=== PATIENT | female | born 1965 | race Caucasian/White ===

== ENCOUNTER → 2020-07-26 | Outpatient (CLI) | payer OTHER | END | disposition home or self-care (01) | LOC: LAB 09:38 | PROVIDERS: ATTEND Preventive Medicine Preventive Medicine/Occupational Environmental Medicine | DX: Z02.1 Encounter for pre-employment examination (principal) | CPT/HCPCS: 36415; 86706; 86735; 86762; 86765; 86787 ==

== ENCOUNTER 2021-02-03 06:27 | Emergency (ER) | payer BC, OTHER ==
[~2021-02-03] VITALS: Ht 162.6 cm; Wt 65.8 kg
[2021-02-03] MEDS ORDERED: cefTRIAXone 1GM/50ML D5W 50 ML IV ONE (07:45)
[2021-02-03] MEDS ORDERED: SODIUM CHLORIDE 0.9% 1,000 ML IV ONE ×2 (07:45)
[2021-02-03] MEDS ORDERED: ONDANSETRON HCL 4 MG/2 ML VIAL IV ONE (07:45)
[2021-02-03] MEDS ORDERED: MORPHINE SULFATE 4 MG/ML SYR/VIAL IV ONE (07:45)
[2021-02-03 07:54] LABS: Basophils # (auto) 0 10 ^3/uL (0-0.2); Basophils % (auto) 0.5 % (0.0-2.0); Eosinophils # (auto) 0.2 10 ^3/uL (0-0.8); Eosinophils % (auto) 2.4 % (0.0-7.0); Hematocrit 34.4 % (36.0-46.0); Hemoglobin 11.6 g/dL (12.2-16.2); Lymphocytes # (auto) 1.3 10 ^3/uL (0.4-5.4); Lymphocytes % (auto) 18.2 % (10.0-50.0); Mean Corpuscular Hemoglobin 32.1 pg (28.0-32.0); Mean Corpuscular Hgb Conc. 33.6 g/dL (32.0-36.0); Mean Corpuscular Volume 95.4 fL (80.0-100.0); Monocytes # (auto) 0.5 10 ^3/uL (0-1.3); Monocytes % (auto) 7.7 % (0.0-12.0); Neutrophils # (auto) 5.1 10 ^3/uL (1.6-8.6); Neutrophils % (auto) 71.2 % (37.0-80.0); Platelet Count (auto) 282 10^3/uL (140-450); White Blood Cell 7.1 10^3/uL (4.4-10.8)
[2021-02-03 08:23] LABS: Calcium 8.8 mg/dL (8.5-10.1); Potassium 3.6 mmol/L (3.5-5.1)
[2021-02-03 08:26] LABS: BUN/Creatinine Ratio 16.4; Bilirubin, Total 1.2 mg/dL (0.2-1.0); Total Protein 6.6 g/dL (6.4-8.2)
[2021-02-03 11:06] LABS: Urine Bacteria NONE SEEN /hpf (None Seen); Urine Blood Negative /uL (Negative); Urine Specific Gravity 1.009 (1.001-1.035); Urine WBC 1 /hpf (0 - 5)
[2021-02-03 11:49] VITALS: BP 95/58
== END 2021-02-03 12:33 | disposition home or self-care (01) ==
LOC: ER 06:27 → EEVIPCON 06:27 → ER 12:33
DX: R10.30 Lower abdominal pain, unspecified (principal)
CPT/HCPCS: 36415; 74176; 80053; 81001; 83605; 83690; 85025; 87040; 96365; 96375; 99285; J0696; J2270; J2405

== ENCOUNTER → 2022-01-23 | Outpatient (CLI) | payer BC ==
[2022-01-23 11:44] LABS: Urine Bacteria FEW /hpf (None Seen); Urine Blood TRACE /uL (Negative); Urine Specific Gravity 1.002 (1.001-1.035); Urine WBC 1 /hpf (0 - 5)
== END | disposition home or self-care (01) ==
LOC: LAB 10:59
PROVIDERS: ATTEND Internal Medicine
DX: N39.0 Urinary tract infection, site not specified (principal)
CPT/HCPCS: 81001

== ENCOUNTER → 2022-01-27 | Outpatient (CLI) | payer BC | END | disposition home or self-care (01) | LOC: XYW 10:51 | PROVIDERS: ATTEND Internal Medicine | DX: I07.1 Rheumatic tricuspid insufficiency (principal); I10 Essential (primary) hypertension | CPT/HCPCS: 93306 ==

== ENCOUNTER 2022-02-11 12:57 | Inpatient (IN) | payer BC ==
[~2022-02-11] VITALS: Ht 162.6 cm; Wt 77.9 kg
[2022-02-11 13:21] LABS: Basophils # (auto) 0.1 10 ^3/uL (0-0.2); Basophils % (auto) 1.2 % (0.0-2.0); Eosinophils # (auto) 0.1 10 ^3/uL (0-0.8); Hematocrit 43.6 % (36.0-46.0); Hemoglobin 14.9 g/dL (12.2-16.2); Lymphocytes # (auto) 2.1 10 ^3/uL (0.4-5.4); Lymphocytes % (auto) 35.5 % (10.0-50.0); Mean Corpuscular Hemoglobin 31.5 pg (28.0-32.0); Mean Corpuscular Hgb Conc. 34.2 g/dL (32.0-36.0); Mean Corpuscular Volume 92.3 fL (80.0-100.0); Monocytes # (auto) 0.5 10 ^3/uL (0-1.3); Monocytes % (auto) 8.4 % (0.0-12.0); Neutrophils # (auto) 3.1 10 ^3/uL (1.6-8.6); Neutrophils % (auto) 52.9 % (37.0-80.0); Nucleated Red Blood Cells % 0.1 %; Red Blood Cells 4.73 10^6/uL (4.0-5.20); Red Cell Distribution Width 13.3 % (11.8-14.3); White Blood Cell 5.9 10^3/uL (4.4-10.8)
[2022-02-11 13:54] LABS: Albumin 3.6 g/dL (3.4-5.0); BUN/Creatinine Ratio 12.5; Calcium 8.8 mg/dL (8.5-10.1); Potassium 4.1 mmol/L (3.5-5.1)
[2022-02-11 13:56] LABS: Bilirubin, Total 0.8 mg/dL (0.2-1.0); Total Protein 7.4 g/dL (6.4-8.2)
[2022-02-11 15:01] LABS: Magnesium 2.2 mg/dL (1.6-2.6)
[2022-02-11] MEDS ORDERED: IOHEXOL 350 MG/ML 100ML IJ ONE (15:08)
[2022-02-11 15:10] LABS: INR 0.99 (0.9-1.15); Partial Thromboplastin Time 25.6 sec (23.6-33.0)
[2022-02-11 16:26] LABS: Urine Bacteria FEW /hpf (None Seen); Urine Blood Negative /uL (Negative); Urine Mucus FEW (None Seen); Urine WBC 1 /hpf (0 - 5)
[2022-02-11 16:58] LABS: Urine Specific Gravity > 1.055 (1.001-1.035)
[2022-02-12] MEDS ORDERED: DOCUSATE SOD 100 MG CAP PO PRN
[2022-02-12] MEDS ORDERED: ACETAMINOPHEN 325 MG TAB PO PRN
[2022-02-12] MEDS ORDERED: MORPHINE SULFATE INJECTION 2 MG/ML SYRG IV PRN
[2022-02-12] MEDS ORDERED: NITROGLYCERIN 0.4 MG SL TAB SL PRN
[2022-02-12 01:12] VITALS: BP 117/67
[2022-02-12] MEDS: MORPHINE SULFATE INJECTION 2 MG/ML SYRG IV PRN ×3 (03:58→18:55)
[2022-02-12 05:00] VITALS: BP 100/49
[2022-02-12 05:37] LABS: Basophils # (auto) 0.1 10 ^3/uL (0-0.2); Basophils % (auto) 1.3 % (0.0-2.0); Eosinophils # (auto) 0.2 10 ^3/uL (0-0.8); Eosinophils % (auto) 2.7 % (0.0-7.0); Hematocrit 41.2 % (36.0-46.0); Hemoglobin 14.3 g/dL (12.2-16.2); Lymphocytes # (auto) 2.2 10 ^3/uL (0.4-5.4); Lymphocytes % (auto) 36.6 % (10.0-50.0); Mean Corpuscular Hemoglobin 31.9 pg (28.0-32.0); Mean Corpuscular Hgb Conc. 34.7 g/dL (32.0-36.0); Mean Corpuscular Volume 91.7 fL (80.0-100.0); Monocytes # (auto) 0.6 10 ^3/uL (0-1.3); Monocytes % (auto) 9.6 % (0.0-12.0); Neutrophils % (auto) 49.8 % (37.0-80.0); Nucleated Red Blood Cells % 0.1 %; Red Cell Distribution Width 13.7 % (11.8-14.3)
[2022-02-12 05:55] LABS: Potassium 3.9 mmol/L (3.5-5.1)
[2022-02-12] MEDS: SODIUM CHLOR 0.9% PF (SALINE LOCK) 10ML VIAL/SYR IV SCH ×3 (06:00→22:31)
[2022-02-12 06:01] LABS: Albumin 3.5 g/dL (3.4-5.0); BUN/Creatinine Ratio 12.8; Calcium 9.1 mg/dL (8.5-10.1)
[2022-02-12 06:04] LABS: Bilirubin, Total 0.8 mg/dL (0.2-1.0)
[2022-02-12 09:00] VITALS: BP 99/50
[2022-02-12] MEDS: FAMOTIDINE (10MG/ML) 2ML VL IV SCH ×2 (09:09→22:23)
[2022-02-12 13:00] VITALS: BP 103/56
[2022-02-12] MEDS ORDERED: ceFAZolin 1GM/50ML 50 ML IV ONE (16:41)
[2022-02-12] MEDS ORDERED: ROCURONIUM 10MG/ML 10ML VIAL IV ONE (16:47)
[2022-02-12] MEDS ORDERED: SUCCINYLCHOLINE CHLORIDE 20 MG/ML 10ML VIAL IV ONE (16:47)
[2022-02-12] MEDS ORDERED: METOCLOPRAMIDE HCL 5MG/ml INJ 2ml VIAL ONE (16:52)
[2022-02-12] MEDS ORDERED: NEOSTIGMINE 1 MG/ML INJ (10mg/10ML VIAL) ONE (16:52)
[2022-02-12] MEDS ORDERED: ONDANSETRON HCL 4 MG/2 ML VIAL ONE (16:52)
[2022-02-12] MEDS ORDERED: GLYCOPYRROLATE 0.2 MG/ML 1ML VIAL ONE (16:52)
[2022-02-12] MEDS ORDERED: SODIUM CHLORIDE LOCK 10 ML ONE (16:52)
[2022-02-12] MEDS ORDERED: MIDAZOLAM HCL 2MG/2ML 2ml VIAL (1mg/ml) ONE (16:52)
[2022-02-12] MEDS ORDERED: MEPERIDINE HCL (25 MG/ML) 1ML VIAL ONE (16:52)
[2022-02-12] MEDS ORDERED: PROPOFOL 10 MG/ML 20 ML IV ONE (16:52)
[2022-02-12] MEDS ORDERED: DexAMETHasone SOD PHOS 10MG/1ML VIAL INJ ONE (16:52)
[2022-02-12] MEDS ORDERED: fentaNYL CITRATE 100 MCG/2 ML VL ONE (16:52)
[2022-02-12] MEDS: BUPIVACAINE 0.25% INJ 50ML VIAL ONE ×2 (16:53→17:55)
[2022-02-12] MEDS ORDERED: DOXAPRAM HCL 20 MG/ML 20ML VIAL INJ IV ONE (16:57)
[2022-02-12 17:08] VITALS: BP 127/66
[2022-02-12] MEDS ORDERED: SUGAMMADEX 200mg/2ml Vial (100MG/ML) IV ONE (17:47)
[2022-02-12] MEDS ORDERED: MORPHINE SULFATE 4 MG/ML SYR/VIAL IV PRN (18:15)
[2022-02-12] MEDS ORDERED: ONDANSETRON HCL 4 MG/2 ML VIAL IV PRN ×2 (18:15)
[2022-02-12] MEDS ORDERED: KETOROLAC TROMETH 30 MG/ML 1ML VIAL IV ONE (18:15)
[2022-02-12] MEDS ORDERED: HYDROmorphone HCL 2 MG/ML VL/or syr IV PRN (18:15)
[2022-02-12 22:00] VITALS: BP 95/51
[2022-02-12] MEDS: HYDROcodone-ACET 5/325MG TAB PO PRN (22:23)
[2022-02-13] MEDS: MORPHINE SULFATE INJECTION 2 MG/ML SYRG IV PRN ×2 (03:40→12:22)
[2022-02-13 04:45] VITALS: BP 100/65
[2022-02-13] MEDS: SODIUM CHLOR 0.9% PF (SALINE LOCK) 10ML VIAL/SYR IV SCH ×2 (05:31→15:53)
[2022-02-13 09:00] VITALS: BP 121/75
[2022-02-13] MEDS: FAMOTIDINE (10MG/ML) 2ML VL IV SCH (10:41)
[2022-02-13 13:00] VITALS: BP 116/57
[2022-02-13] MEDS: HYDROcodone-ACET 5/325MG TAB PO PRN (13:35)
[2022-02-13 13:58] LABS: Basophils # (auto) 0 10 ^3/uL (0-0.2); Basophils % (auto) 0.3 % (0.0-2.0); Eosinophils # (auto) 0 10 ^3/uL (0-0.8); Hematocrit 43.2 % (36.0-46.0); Hemoglobin 14.6 g/dL (12.2-16.2); Lymphocytes # (auto) 1.3 10 ^3/uL (0.4-5.4); Mean Corpuscular Hemoglobin 31.2 pg (28.0-32.0); Mean Corpuscular Hgb Conc. 33.8 g/dL (32.0-36.0); Mean Corpuscular Volume 92.1 fL (80.0-100.0); Monocytes # (auto) 0.9 10 ^3/uL (0-1.3); Monocytes % (auto) 7.3 % (0.0-12.0); Neutrophils # (auto) 10.5 10 ^3/uL (1.6-8.6); Neutrophils % (auto) 82.4 % (37.0-80.0); Red Blood Cells 4.69 10^6/uL (4.0-5.20); Red Cell Distribution Width 13.5 % (11.8-14.3); White Blood Cell 12.7 10^3/uL (4.4-10.8)
[2022-02-13 14:14] LABS: Albumin 3.5 g/dL (3.4-5.0); BUN/Creatinine Ratio 9.3; Calcium 9.3 mg/dL (8.5-10.1); Potassium 4.5 mmol/L (3.5-5.1)
[2022-02-13 14:17] LABS: Bilirubin, Total 0.8 mg/dL (0.2-1.0); Total Protein 7.6 g/dL (6.4-8.2)
[2022-02-13] MEDS ORDERED: PANT40TA2 PO (15:06)
[2022-02-13] MEDS ORDERED: ONDA-144 PO (15:06)
[2022-02-13 16:46] VITALS: BP 116/57
== END 2022-02-13 17:00 | disposition home or self-care (01) | DRG 418 ==
LOC: ER 12:57 → OVERFLOW 23:51 → CENTRAL 02-12 00:45
PROVIDERS: ADMIT Nurse Practitioner Family; ATTEND Internal Medicine
PROC: 0FT44ZZ Resection of Gallbladder, Percutaneous Endoscopic Approach (ICD-10-PCS; principal; 2022-02-12 16:55)
DX: K80.62 Calculus of gallbladder and bile duct with acute cholecystitis without obstruction (principal); J98.11 Atelectasis; Z20.822 Contact with and (suspected) exposure to COVID-19; Z90.710 Acquired absence of both cervix and uterus; Z98.82 Breast implant status
CPT/HCPCS: 36415; 71260; 74177; 76705; 80053; 81001; 83690; 83735; 84443; 85025; 85610; 85730; 93005; 96374; 96375; G0378; J0330; J0690; J1100; J2250; J2405; J2704; J3490

== ENCOUNTER → 2022-03-03 | Outpatient (CLI) | payer BC ==
[~2022-03-03] MED LIST: ONDA-144 PO; PANT40TA2 PO
[2022-03-03 09:38] LABS: Urine Bacteria MOD /hpf (None Seen); Urine Blood 1+ /uL (Negative); Urine Mucus FEW (None Seen); Urine Specific Gravity 1.025 (1.001-1.035); Urine WBC 2 /hpf (0 - 5)
[2022-03-03 09:47] LABS: Basophils # (auto) 0 10 ^3/uL (0-0.2); Basophils % (auto) 0.7 % (0.0-2.0); Eosinophils # (auto) 0.2 10 ^3/uL (0-0.8); Eosinophils % (auto) 3.1 % (0.0-7.0); Hematocrit 43.1 % (36.0-46.0); Hemoglobin 14.5 g/dL (12.2-16.2); Lymphocytes # (auto) 1.3 10 ^3/uL (0.4-5.4); Lymphocytes % (auto) 24.3 % (10.0-50.0); Mean Corpuscular Hemoglobin 31.3 pg (28.0-32.0); Mean Corpuscular Hgb Conc. 33.7 g/dL (32.0-36.0); Mean Corpuscular Volume 92.8 fL (80.0-100.0); Monocytes # (auto) 0.6 10 ^3/uL (0-1.3); Monocytes % (auto) 11.6 % (0.0-12.0); Neutrophils # (auto) 3.2 10 ^3/uL (1.6-8.6); Neutrophils % (auto) 60.3 % (37.0-80.0); Red Blood Cells 4.64 10^6/uL (4.0-5.20); Red Cell Distribution Width 13.3 % (11.8-14.3); White Blood Cell 5.4 10^3/uL (4.4-10.8)
[2022-03-03 10:36] LABS: Albumin 3.5 g/dL (3.4-5.0); Bilirubin, Direct 0.2 mg/dL (0-0.2); Bilirubin, Total 0.9 mg/dL (0.2-1.0); Total Protein 7.2 g/dL (6.4-8.2)
== END | disposition home or self-care (01) ==
LOC: LAB 09:17
PROVIDERS: ATTEND Internal Medicine
DX: R31.29 Other microscopic hematuria (principal); R10.13 Epigastric pain
CPT/HCPCS: 36415; 80076; 81001; 85025

== ENCOUNTER → 2022-04-16 | Outpatient (CLI) | payer BC | END | disposition home or self-care (01) | LOC: LAB 09:59 | PROVIDERS: ATTEND Internal Medicine | DX: K57.90 Diverticulosis of intestine, part unspecified, without perforation or abscess without bleeding (principal); D72.829 Elevated white blood cell count, unspecified | CPT/HCPCS: 36415; 85652; 86256 ==

== ENCOUNTER → 2022-05-21 | Outpatient (CLI) | payer MEDICAID ==
[2022-05-21 15:04] LABS: Urine Bacteria FEW /hpf (None Seen); Urine Blood 1+ /uL (Negative); Urine Mucus FEW (None Seen); Urine Specific Gravity 1.029 (1.001-1.035); Urine WBC 13 /hpf (0 - 5)
== END | disposition home or self-care (01) ==
LOC: LAB 14:30
PROVIDERS: ATTEND Urology
DX: N39.0 Urinary tract infection, site not specified (principal)
CPT/HCPCS: 81001; 87086

== ENCOUNTER → 2023-01-15 | Outpatient (CLI) | payer MEDICAID ==
[~2023-01-15] MED LIST changes: +DICL1GEL50 TOP; +IBUP800T27 PO
[2023-01-15 13:00] LABS: Urine Bacteria FEW /hpf (None Seen); Urine Blood 1+ /uL (Negative); Urine Specific Gravity 1.021 (1.001-1.035); Urine WBC 2 /hpf (0 - 5)
== END | disposition home or self-care (01) ==
LOC: LAB 11:44
PROVIDERS: ATTEND Internal Medicine
DX: R10.2 Pelvic and perineal pain (principal)
CPT/HCPCS: 81001; 87086

== ENCOUNTER → 2023-02-19 | Outpatient (CLI) | payer MEDICAID | END | disposition home or self-care (01) | LOC: LAB 06:41 | PROVIDERS: ATTEND Internal Medicine | DX: N39.0 Urinary tract infection, site not specified (principal) | CPT/HCPCS: 87086 ==

== ENCOUNTER → 2023-02-26 | Outpatient (CLI) | payer MEDICAID ==
[2023-02-26 06:55] LABS: Urine WBC None Seen /hpf (0 - 5)
[2023-02-26 08:42] LABS: Urine Bacteria NONE SEEN /hpf (None Seen); Urine Blood Negative /uL (Negative); Urine Budding Yeast MANY /hpf (None Seen)
== END | disposition home or self-care (01) ==
LOC: LAB 06:52
PROVIDERS: ATTEND Urology
DX: N39.0 Urinary tract infection, site not specified (principal)
CPT/HCPCS: 81001; 87086

== ENCOUNTER 2023-03-14 10:05 | Emergency (ER) | payer MEDICAID ==
[~2023-03-14] VITALS: Ht 162.6 cm; Wt 68.0 kg
[~2023-03-14 10:05] MED LIST changes: -DICL1GEL50 TOP; +DICL1GEL73 TOP; +IBUP-1456 PO; -IBUP800T27 PO
[2023-03-14 10:30] LABS: Basophils # (auto) 0 10 ^3/uL (0-0.2); Basophils % (auto) 0.9 % (0.0-2.0); Eosinophils # (auto) 0.1 10 ^3/uL (0-0.8); Eosinophils % (auto) 1.5 % (0.0-7.0); Hematocrit 42.5 % (36.0-46.0); Hemoglobin 14.8 g/dL (12.2-16.2); Lymphocytes # (auto) 1.7 10 ^3/uL (0.4-5.4); Lymphocytes % (auto) 33.5 % (10.0-50.0); Mean Corpuscular Hemoglobin 32.6 pg (28.0-32.0); Mean Corpuscular Hgb Conc. 34.9 g/dL (32.0-36.0); Mean Corpuscular Volume 93.5 fL (80.0-100.0); Monocytes # (auto) 0.4 10 ^3/uL (0-1.3); Monocytes % (auto) 8.4 % (0.0-12.0); Neutrophils # (auto) 2.9 10 ^3/uL (1.6-8.6); Neutrophils % (auto) 55.7 % (37.0-80.0); Nucleated Red Blood Cells % 0.1 %; Red Blood Cells 4.54 10^6/uL (4.0-5.20); Red Cell Distribution Width 13.2 % (11.8-14.3); White Blood Cell 5.2 10^3/uL (4.4-10.8)
[2023-03-14 10:35] VITALS: BP 104/57
[2023-03-14 10:49] LABS: Albumin 3.6 g/dL (3.4-5.0); Calcium 8.7 mg/dL (8.5-10.1); Potassium 3.6 mmol/L (3.5-5.1)
[2023-03-14 10:53] LABS: BUN/Creatinine Ratio 12.2 (10.0-20.0); Total Protein 6.7 g/dL (6.4-8.2)
[2023-03-14 12:25] LABS: Urine Bacteria MOD /hpf (None Seen); Urine Blood 1+ /uL (Negative); Urine Mucus MANY (None Seen); Urine Specific Gravity 1.028 (1.001-1.035); Urine WBC 102 /hpf (0 - 5)
[2023-03-14] MEDS ORDERED: IBUP1TAB5 PO (12:41)
[2023-03-14] MEDS ORDERED: CEPH500T PO (12:41)
[2023-03-14] MEDS ORDERED: cefTRIAXone SOD 1,000 MG VL IM ONE (12:45)
[2023-03-14] MEDS ORDERED: KETOROLAC TROMETH 30 MG/ML 1ML VIAL IM ONE (12:45)
== END 2023-03-14 12:50 | disposition home or self-care (01) ==
LOC: ER 10:05
DX: N12 Tubulo-interstitial nephritis, not specified as acute or chronic (principal); Z90.49 Acquired absence of other specified parts of digestive tract; Z88.6 Allergy status to analgesic agent; Z88.8 Allergy status to other drugs, medicaments and biological substances
CPT/HCPCS: 36415; 74176; 76705; 80053; 81001; 83690; 84484; 85025; 87086; 93005; 96372; 99285; J0696; J1885

== ENCOUNTER 2023-12-14 09:38 | Emergency (ER) | payer MEDICAID ==
[~2023-12-14] VITALS: Ht 162.6 cm; Wt 76.4 kg
[~2023-12-14 09:38] MED LIST changes: +CEPH500T PO; +IBUP1TAB5 PO
[2023-12-14 09:53] VITALS: BP 113/63; PULSE 89; RESP 18; TEMP 98; O2SAT 98
[2023-12-14] MEDS: KETOROLAC TROMETH 60MG/2ML VIAL IM ONE (10:06)
[2023-12-14] MEDS: LIDOCAINE 5% TOPICAL PATCH TOP ONE (10:16)
== END 2023-12-14 10:08 | disposition home or self-care (01) ==
LOC: ER 09:38 → EEVIPCON 09:38 → ER 10:08
DX: M54.2 Cervicalgia (principal); Z90.49 Acquired absence of other specified parts of digestive tract
CPT/HCPCS: 96372; 99283; J1885

== ENCOUNTER → 2024-02-21 | Outpatient (CLI) | payer MEDICAID ==
[~2024-02-21] MED LIST changes: -CEPH500T PO; -DICL1GEL73 TOP; -IBUP1TAB5 PO; +LIDO5PAD12 EX; -PANT40TA2 PO; +TRAM50TA2 PO
[2024-02-21 10:19] LABS: Anion Gap 6 (5-15); Carbon Dioxide 27 mmol/L (20-30); Chloride 109 mmol/L (98-107); Potassium 3.8 mmol/L (3.5-5.1); Sodium 142 mmol/L (136-145)
[2024-02-21 10:20] LABS: Calcium 9.9 mg/dL (8.5-10.1)
[2024-02-21 10:25] LABS: BUN/Creatinine Ratio 9.2 (10.0-20.0); Blood Urea Nitrogen 7 mg/dL (9-23); Glucose 94 mg/dL (74-106)
== END | disposition home or self-care (01) ==
LOC: LAB 09:39
PROVIDERS: ATTEND Internal Medicine
DX: E87.6 Hypokalemia (principal)
CPT/HCPCS: 36415; 80048

== ENCOUNTER → 2024-05-09 | Outpatient (CLI) | payer MEDICAID | END | disposition home or self-care (01) | LOC: LAB 13:28 | PROVIDERS: ATTEND Internal Medicine | DX: R07.89 Other chest pain (principal); E78.5 Hyperlipidemia, unspecified | CPT/HCPCS: 82306; 82607 ==

== ENCOUNTER → 2025-02-13 | Outpatient (CLI) | payer MEDICAID ==
[~2025-02-13] MED LIST changes: +AMOX875T3 PO
[2025-02-13 07:42] LABS: Alanine Aminotransferase 27 U/L (7-40); Albumin 3.8 g/dL (3.2-4.8); Alkaline Phosphatase 77 U/L (46-116); Anion Gap 9 (5-15); Aspartate Aminotransferase 21 U/L (13-40); BUN/Creatinine Ratio 18.3 (10.0-20.0); Blood Urea Nitrogen 15 mg/dL (9-23); Calcium 9.5 mg/dL (8.7-10.4); Carbon Dioxide 24 mmol/L (20-31); Cholesterol 171 mg/dL (< 200); Glucose 94 mg/dL (74-106); HDL Cholesterol 43 mg/dL (40-59); Potassium 3.7 mmol/L (3.5-5.1); Sodium 144 mmol/L (136-145); Total Protein 5.8 g/dL (5.7-8.2); Triglycerides 121 mg/dL (< 150)
[2025-02-13 07:43] LABS: Bilirubin, Total 0.7 mg/dL (0.2-1.0)
[2025-02-13 07:44] LABS: Chloride 111 mmol/L (98-107); LDL Cholesterol 108 mg/dL (< 100)
== END | disposition home or self-care (01) ==
LOC: LAB 06:30
PROVIDERS: ATTEND Internal Medicine
DX: E87.6 Hypokalemia (principal); E55.9 Vitamin D deficiency, unspecified
CPT/HCPCS: 36415; 80053; 80061; 82306

== ENCOUNTER 2025-03-06 10:18 | Outpatient (CLI) | payer MEDICAID ==
[2025-03-06 10:38] LABS: Basophils # (auto) 0.1 10 ^3/uL (0-0.2); Basophils % (auto) 1.1 % (0.0-2.0); Eosinophils # (auto) 0.1 10 ^3/uL (0-0.8); Eosinophils % (auto) 2.1 % (0.0-7.0); Hematocrit 39.8 % (36.0-46.0); Hemoglobin 13.4 g/dL (12.2-16.2); Lymphocytes # (auto) 1.9 10 ^3/uL (0.4-5.4); Lymphocytes % (auto) 33.4 % (10.0-50.0); Mean Corpuscular Hemoglobin 29.5 pg (28.0-32.0); Mean Corpuscular Hgb Conc. 33.8 g/dL (32.0-36.0); Mean Corpuscular Volume 87.3 fL (80.0-100.0); Monocytes # (auto) 0.6 10 ^3/uL (0-1.3); Monocytes % (auto) 10.3 % (0.0-12.0); Neutrophils % (auto) 53.1 % (37.0-80.0); Platelet Count (auto) 241 10^3/uL (140-450); Red Blood Cells 4.55 10^6/uL (4.0-5.20); Red Cell Distribution Width 15.4 % (11.8-14.3); White Blood Cell 5.6 10^3/uL (4.4-10.8)
[2025-03-06 11:23] LABS: Alanine Aminotransferase 27 U/L (7-40); Albumin 4.2 g/dL (3.2-4.8); Alkaline Phosphatase 94 U/L (46-116); Anion Gap 7 (5-15); Aspartate Aminotransferase 25 U/L (13-40); BUN/Creatinine Ratio 14.7 (10.0-20.0); Blood Urea Nitrogen 11 mg/dL (9-23); Carbon Dioxide 25 mmol/L (20-31); Cholesterol 189 mg/dL (< 200); Glucose 86 mg/dL (74-106); HDL Cholesterol 41 mg/dL (40-59); Potassium 3.8 mmol/L (3.5-5.1); Sodium 143 mmol/L (136-145); Total Protein 6.4 g/dL (5.7-8.2)
[2025-03-06 11:24] LABS: Bilirubin, Total 0.7 mg/dL (0.2-1.0)
[2025-03-06 11:34] LABS: Chloride 111 mmol/L (98-107); LDL Cholesterol 121 mg/dL (< 100); Triglycerides 209 mg/dL (< 150)
== END 2025-03-06 17:00 | disposition home or self-care (01) ==
LOC: LAB 10:18
PROVIDERS: ATTEND Internal Medicine
DX: E78.5 Hyperlipidemia, unspecified (principal); R06.02 Shortness of breath; R07.89 Other chest pain
CPT/HCPCS: 36415; 80053; 80061; 83695; 84439; 84443; 85025

== ENCOUNTER 2025-03-20 10:10 | Outpatient (CLI) | payer MEDICAID ==
[~2025-03-20] VITALS: Ht 162.6 cm; Wt 74.8 kg
[2025-03-20] MEDS: REGADENOSON 0.4 MG/5 ML SYRG IV ONE ×2 (12:06→12:35)
== END 2025-03-20 17:00 | disposition home or self-care (01) ==
LOC: XYW 10:10
PROVIDERS: ATTEND Internal Medicine
DX: Z01.810 Encounter for preprocedural cardiovascular examination (principal); R07.9 Chest pain, unspecified; R06.02 Shortness of breath; E66.811 Obesity, class 1; E78.3 Hyperchylomicronemia
CPT/HCPCS: 93017; J2785

== ENCOUNTER 2025-04-18 11:18 | Day surgery (SDC) | payer MEDICAID ==
[2025-04-13 11:46] LABS: Hematocrit 40.4 % (36.0-46.0); Hemoglobin 13.6 g/dL (12.2-16.2); Mean Corpuscular Hemoglobin 29.8 pg (28.0-32.0); Mean Corpuscular Volume 88.7 fL (80.0-100.0); Nucleated Red Blood Cells % 0.1 %
[2025-04-13 11:57] LABS: INR 0.94 (0.9-1.15); Partial Thromboplastin Time 22.7 SEC (24.5-34.5); Prothrombin Time 10.0 sec (9.3-11.8)
[2025-04-13 12:12] LABS: Alanine Aminotransferase 26 U/L (7-40); Albumin 3.8 g/dL (3.2-4.8); Alkaline Phosphatase 82 U/L (46-116); Anion Gap 9 (5-15); BUN/Creatinine Ratio 14.8 (10.0-20.0); Blood Urea Nitrogen 12 mg/dL (9-23); Calcium 9.7 mg/dL (8.7-10.4); Carbon Dioxide 26 mmol/L (20-31); Chloride 111 mmol/L (98-107); Glucose 130 mg/dL (74-106); Potassium 3.5 mmol/L (3.5-5.1); Sodium 146 mmol/L (136-145); Total Protein 5.7 g/dL (5.7-8.2)
[2025-04-13 12:13] LABS: Bilirubin, Total 0.7 mg/dL (0.2-1.0)
[~2025-04-18] VITALS: Ht 157.5 cm; Wt 80.3 kg
[~2025-04-18 11:18] MED LIST changes: +ALPR0.254 PO; -AMOX875T3 PO; +ERGO1CAP23 PO; +ESCI10TA PO; +ESTR1TAB6 PO; -LIDO5PAD12 EX; -ONDA-144 PO
[2025-04-18] MEDS ORDERED: IODIXANOL 320MG/ML 100ML BTL IV ONE (12:14)
[2025-04-18] MEDS ORDERED: VERAPAMIL 2.5MG/ML INJ 2ML VIAL IV ONE (12:31)
[2025-04-18] MEDS ORDERED: HEPARIN SODIUM (PORCINE) 5000 UNITS/ML 1ML VIAL ONE (12:31)
[2025-04-18] MEDS ORDERED: MIDAZOLAM HCL 2MG/2ML 2ml VIAL (1mg/ml) ONE (12:32)
[2025-04-18] MEDS ORDERED: LIDOCAINE 2%HCL (LOCAL ANESTH.) INJ 10ml MDV ONE (12:32)
[2025-04-18] MEDS ORDERED: fentaNYL CITRATE 100 MCG/2 ML VL ONE (12:32)
[2025-04-18 13:04] VITALS: BP 99/67; PULSE 57; RESP 18; TEMP 98.4; O2SAT 99
--- NOTE | 2025-04-18 13:07 | DVHOP2 ---
Operative Report - 2 Report Details Date: 04/18/25 Preop Diagnosis: CAD. Postop Diagnosis: Significant CAD. Mild cardiomyopathy. Surgeon: Cash Bustos MD Anesthesiologist: Conscious sedation Anesthesia: Mac, Local Consent: The patient was informed of the risks and benefits of the procedure. These include but are not limited to complications of anesthesia, postoperative infection, incomplete relief of symptoms, recurrence of symptoms, damage to bl ood vessels, nerves and tendons, deep venous thrombosis, pulmonary embolism and possible need for repeat surgery in the future. Complications: No complications. Findings: Mild cardiomyopathy. Indications for Surgery: Chest pain preoperative clearance. Name of Procedure Performed Left heart catheterization. Bilateral cine coronary angiography. Left ventriculography. Procedure Details Procedure Details: Prior local anesthesia with 2% lidocaine to the right wrist and full informed consent obtained patient was prepped and draped in usual fashion followed by placement of a six Belgian sheath into the radial artery through which a multipurpose catheter was used for cannulation of both right and left coronary ostia and for ventriculography. No complications. Fractional flow reserve evaluation with a catheterization works program was utilized to evaluate the stenosis in the RCA. Hemodynamics: Aortic blood pressure was 130/70. End-diastolic pressure was six. There was no gradient across the aortic valve on pullback. Coronary anatomy: The RCA is a nondominant vessel. It gives off to an acute marginal branch and an inferior branch. The origin and proximal segment of the RCA had what appears to be 60-70% stenosis. Catheterization works program evaluation revealed an FFR of 0.90 consistent with noncritical disease. Left main is large and normal. Left anterior descending is large. Two diagon als are free of significant disease as is the LAD itself. The circumflex is large and dominant. PDA comes off the circumflex. Two posterolateral branches are normal. Ventriculography in the [facility]ER[facility] projection shows a mildly enlarged left ventricle. EF of a proximal 35-40% with global hypokinesis. Impression: Normal left ventricular end-diastolic pressure nurse. Mildly decreased left ventricular ejection fraction. No significant coronary artery disease. Normal FFR of the RCA. Recommendations: Continue medical therapy, risk factor modification to continue. Condition Good Disposition Home Date of Service: Apr 18, 2025 Billing Provider: CASH BUSTOS Sr., MD Cardiology Common Codes: 72265-IFBLOLQ INP/OBS CARE (High) Cardiology Procedure Codes: 67118-ILKO HEART CATH W/INTRA INJ CASH BUSTOS Sr., MD Apr 18, 2025 13:07
[2025-04-18 13:18] VITALS: BP 104/69; PULSE 61; RESP 15; O2SAT 100
[2025-04-18 13:29] VITALS: BP 104/72; PULSE 69; RESP 16; O2SAT 97
[2025-04-18 13:45] VITALS: BP 96/61; PULSE 61; RESP 17; O2SAT 98
[2025-04-18 14:18] VITALS: BP 97/60; PULSE 65; RESP 15; O2SAT 96
[2025-04-18 14:53] VITALS: BP 100/63; PULSE 69; RESP 15; O2SAT 99
== END 2025-04-18 15:15 | disposition home or self-care (01) ==
LOC: EEVIPCON → CATH 11:18
PROVIDERS: ATTEND Internal Medicine
DX: I42.9 Cardiomyopathy, unspecified (principal); I25.10 Atherosclerotic heart disease of native coronary artery without angina pectoris; E78.5 Hyperlipidemia, unspecified; Z79.899 Other long term (current) drug therapy
CPT/HCPCS: 36415; 80053; 85025; 85610; 85730; 93458; 93571; C1894; J1644; J2003; J2250; J3010; J7030; Q9967; 99152

== ENCOUNTER 2025-07-05 07:48 | Outpatient (CLI) | payer MEDICAID ==
[2025-07-05 08:38] LABS: Alanine Aminotransferase 23.0 U/L (7-40); Albumin 4.2 g/dL (3.2-4.8); Alkaline Phosphatase 108.0 U/L (46-116); Bilirubin, Direct 0.2 mg/dL (<0.3); Cholesterol 169.0 mg/dL (< 200); Creatine Kinase IFCC 65.0 U/L (34-145); Total Protein 7.1 g/dL (5.7-8.2); Triglycerides 111.0 mg/dL (< 150)
[2025-07-05 08:39] LABS: Bilirubin, Total 0.7 mg/dL (0.2-1.0); HDL Cholesterol 44.0 mg/dL (40-59)
== END 2025-07-05 17:00 | disposition home or self-care (01) ==
LOC: LAB 07:48
PROVIDERS: ATTEND Internal Medicine
DX: E78.5 Hyperlipidemia, unspecified (principal)
CPT/HCPCS: 36415; 80061; 80076; 82306; 82550; 83036